=== PATIENT | male | born 1965 | race African-American/Black ===

== ENCOUNTER 2020-12-19 09:29 | Inpatient (IN) | payer MEDICARE, MEDICAID ==
[~2020-12-19] VITALS: Ht 165.1 cm; Wt 74.4 kg
[2020-12-19] MEDS ORDERED: CLONIDINE 0.2MG TABLET PO ONE (10:00)
[2020-12-19 10:17] LABS: EOSINOPHILS % 5.8 % (0.0-5.0); HEMOGLOBIN. 8.2 g/dL (14.0-18.0); LYMPHOCYTES % 16.8 % (20.0-50.0); MEAN CORPUSCULAR HEMOGLOBIN 21.6 pg (28.0-32.0); MEAN CORPUSCULAR VOLUME 68.3 fL (80.0-94.0); MEAN PLATELET VOLUME 8.6 fl (7.4-10.4); MONOCYTES % 7.3 % (2.0-8.0); NEUTROPHILS % 69.1 % (40.0-76.0); PLATELET 166 x1000/uL (130-400); RED BLOOD CELL COUNT 3.81 mill/uL (4.7-6.1)
[2020-12-19 10:24] LABS: CHLORIDE 99 mEq/L (98-107)
[2020-12-19] MEDS ORDERED: ASPIRIN 81MG TABLET PO ONE (11:15)
[2020-12-19] MEDS ORDERED: ALPRAZOLAM 0.5 MG TABLET PO PRN (15:15)
[2020-12-19 16:30] VITALS: BP 175/70
[2020-12-19] MEDS ORDERED: CLONIDINE 0.1MG TABLET PO PRN (16:30)
[2020-12-19] MEDS ORDERED: ACETAMINOPHEN 325MG TABLET PO PRN ×3 (16:30→19:45)
[2020-12-19] MEDS ORDERED: VELPHORO 500 MG PO SCH (17:00)
[2020-12-19 17:30] VITALS: BP 175/70
[2020-12-19] MEDS: NIFEDIPINE XL 60MG TAB PO SCH (17:42)
[2020-12-19] MEDS ORDERED: SUCR500T MT (18:25)
[2020-12-19] MEDS ORDERED: KEPP500 MT (18:26)
[2020-12-19] MEDS ORDERED: OMEP20TA15 PO (18:26)
[2020-12-19] MEDS ORDERED: ALLO100T MT (18:26)
[2020-12-19] MEDS ORDERED: METO-385 PO (18:27)
[2020-12-19] MEDS ORDERED: NEPVIT MT (18:27)
[2020-12-19] MEDS ORDERED: ONDANSETRON HCL 4MG/2ML INJ IV PRN (19:45)
[2020-12-19] MEDS ORDERED: DOCUSATE SODIUM 100MG CAPSULE PO PRN (19:45)
[2020-12-19] MEDS ORDERED: TRAMADOL 50MG TABLET PO PRN (19:45)
[2020-12-19] MEDS ORDERED: NITROGLYCERIN 0.4MG TABLET SL SL PRN (19:45)
[2020-12-19] MEDS ORDERED: ENOXAPARIN 40MG/0.4ML SYR SUBCUT SCH (19:45)
[2020-12-19] MEDS ORDERED: DIPHENHYDRAMINE 50MG/ML VIAL IV PRN (19:45)
[2020-12-19] MEDS ORDERED: IPRATROPIUM/ALBUTEROL 0.5-3(2.5)MG/3ML NEB NEB PRN (19:45)
[2020-12-19] MEDS ORDERED: MAGNESIUM/ALUMINUM HYDROXIDE/SIMETHICONE 30ML UDC PO PRN (19:45)
[2020-12-19] MEDS ORDERED: GUAIFENESIN 200MG/10ML SUGAR FREE UDC PO PRN (19:45)
[2020-12-19 20:00] VITALS: BP 126/59
[2020-12-19] MEDS ORDERED: ASCORBIC ACID 500 MG TABLET PO SCH (21:00)
[2020-12-19] MEDS ORDERED: MINOXIDIL 2.5MG TABLET PO SCH (21:00)
[2020-12-19] MEDS ORDERED: ZOLPIDEM TARTRATE 5MG TABLET PO PRN (21:00)
[2020-12-19] MEDS: ENOXAPARIN 30MG/0.3ML SYR SUBCUT SCH ×2 (21:09→21:24)
[2020-12-19] MEDS: METOPROLOL TARTRATE 50MG TABLET PO SCH (21:09)
[2020-12-19] MEDS: LEVETIRACETAM 500MG TABLET PO SCH (21:10)
[2020-12-19] MEDS: FAMOTIDINE 20MG TABLET PO SCH (21:10)
[2020-12-20] VITALS (7 sets, daily range): BP systolic 115–150; BP diastolic 49–69
[2020-12-20 00:30] LABS: CREATINE KINASE MB FRACTION 1.1 ng/mL (0.5-3.6)
[2020-12-20] MEDS ORDERED: OMEPRAZOLE 20MG CAPSULE EXTENDED RELEASE PO SCH (07:10)
[2020-12-20] MEDS: LEVETIRACETAM 500MG TABLET PO SCH ×2 (08:56→20:44)
[2020-12-20] MEDS: ALLOPURINOL 100 MG TABLET PO SCH (08:56)
[2020-12-20] MEDS: ASCORBIC ACID 500 MG TABLET PO SCH (08:56)
[2020-12-20] MEDS: FOLIC ACID/VITAMIN B COMP W-C TABLET PO SCH (08:56)
[2020-12-20] MEDS: NIFEDIPINE XL 60MG TAB PO SCH ×2 (08:59→20:27)
[2020-12-20] MEDS: METOPROLOL TARTRATE 50MG TABLET PO SCH ×2 (08:59→20:26)
[2020-12-20] MEDS ORDERED: ZINC SULFATE 220 MG ( 50 ) CAPSULE PO SCH (09:00)
[2020-12-20] MEDS ORDERED: AMLODIPINE 10MG TABLET PO SCH (09:00)
[2020-12-20 09:33] LABS: CHLORIDE 101 mEq/L (98-107)
[2020-12-20 09:35] LABS: BASOPHILS % 1.3 % (0.0-2.0); EOSINOPHILS % 7.6 % (0.0-5.0); HEMATOCRIT. 22.1 % (42.0-52.0); HEMOGLOBIN. 7.2 g/dL (14.0-18.0); LYMPHOCYTES % 22.2 % (20.0-50.0); MEAN CORPUSCULAR HEMOGLOBIN 22.2 pg (28.0-32.0); MEAN CORPUSCULAR VOLUME 67.8 fL (80.0-94.0); MONOCYTES % 6.9 % (2.0-8.0); RED BLOOD CELL COUNT 3.26 mill/uL (4.7-6.1); RED CELL DISTRIBUTION WIDTH 21.1 % (11.6-14.6)
[2020-12-20 09:40] LABS: PHOSPHORUS 5.1 mg/dL (2.5-4.9)
[2020-12-20 09:42] LABS: CREATINE KINASE 76 IU/L (39-308)
[2020-12-20 09:46] LABS: CREATINE KINASE MB FRACTION 1.1 ng/mL (0.5-3.6)
[2020-12-20 14:12] LABS: MEAN PLATELET VOLUME 8.8 fl (7.4-10.4); PLATELET ESTIMATE NORMAL
[2020-12-20 14:13] LABS: PLATELET 151 x1000/uL (130-400)
[2020-12-20] MEDS: FAMOTIDINE 20MG TABLET PO SCH (20:44)
[2020-12-21 04:00] VITALS: BP 134/45
[2020-12-21] MEDS ORDERED: OMEPRAZOLE 20MG CAPSULE EXTENDED RELEASE PO SCH (07:10)
[2020-12-21 08:00] VITALS: BP 169/65
[2020-12-21] MEDS: LEVETIRACETAM 500MG TABLET PO SCH (09:02)
[2020-12-21] MEDS: FOLIC ACID/VITAMIN B COMP W-C TABLET PO SCH (09:02)
[2020-12-21] MEDS: ALLOPURINOL 100 MG TABLET PO SCH (09:03)
[2020-12-21] MEDS: NIFEDIPINE XL 60MG TAB PO SCH (09:03)
[2020-12-21] MEDS: METOPROLOL TARTRATE 50MG TABLET PO SCH (09:03)
[2020-12-21] MEDS: ASCORBIC ACID 500 MG TABLET PO SCH (09:03)
[2020-12-21 12:00] VITALS: BP 154/61
[2020-12-21 13:35] VITALS: BP 154/61
== END 2020-12-21 15:30 | disposition home or self-care (01) | DRG 291 ==
LOC: ER 09:29 → 8WST 13:06 → EDBEDREQ 13:09 → EDBEDREQTM 13:09 → ENRESERV 13:40
PROVIDERS: ADMIT Internal Medicine; ATTEND Internal Medicine
PROC: 5A1D70Z Performance of Urinary Filtration, Intermittent, Less than 6 Hours Per Day (ICD-10-PCS; principal; 2020-12-20)
DX: I13.2 Hypertensive heart and chronic kidney disease with heart failure and with stage 5 chronic kidney disease, or end stage renal disease (principal); N18.6 End stage renal disease; I50.33 Acute on chronic diastolic (congestive) heart failure; I16.1 Hypertensive emergency; E83.52 Hypercalcemia; G40.909 Epilepsy, unspecified, not intractable, without status epilepticus; E78.5 Hyperlipidemia, unspecified; K59.00 Constipation, unspecified; K21.9 Gastro-esophageal reflux disease without esophagitis; F41.9 Anxiety disorder, unspecified; F32.9 Major depressive disorder, single episode, unspecified; M10.9 Gout, unspecified; Z82.49 Family history of ischemic heart disease and other diseases of the circulatory system; Z83.3 Family history of diabetes mellitus; Z86.73 Personal history of transient ischemic attack (TIA), and cerebral infarction without residual deficits; Z91.14 Patient's other noncompliance with medication regimen; Z90.49 Acquired absence of other specified parts of digestive tract; Z99.2 Dependence on renal dialysis; D63.8 Anemia in other chronic diseases classified elsewhere; E83.41 Hypermagnesemia; E83.39 Other disorders of phosphorus metabolism
CPT/HCPCS: 36415; 71045; 80053; 82550; 82553; 82962; 83036; 83735; 83880; 84100; 84484; 85025; 93005; 93306; 99285; J1650